=== PATIENT | female | born 1990 | race Caucasian/White ===

== ENCOUNTER 2016-06-29 23:50 | Emergency (ER) | payer OTHER ==
[2016-06-30] MEDS ORDERED: HYDROcod/ACETAM 5/325 MG TABLET PO STA (00:14)
[2016-06-30] MEDS ORDERED: AZITHROMYCIN 250 MG TABLET PO ONE (00:14)
[2016-06-30] MEDS ORDERED: AZITHROMYCIN 250 MG TABLET PO STA (00:14)
[2016-06-30] MEDS ORDERED: DEXAMETHASONE 10 MG/ML VIAL PO STA (00:14)
[2016-06-30] MEDS ORDERED: HYDROcod/ACETAM 5/325 MG TABLET ONE (00:15)
[2016-06-30] MEDS ORDERED: CHERRY SYRUP 10 ML UDC PO ONE (00:16)
[2016-06-30] MEDS ORDERED: DEXAMETHASONE 10 MG/ML VIAL ONE (00:16)
== END 2016-06-30 00:34 | disposition home or self-care (01) ==
DX: H66.003 Acute suppurative otitis media without spontaneous rupture of ear drum, bilateral (principal); J01.10 Acute frontal sinusitis, unspecified
CPT/HCPCS: 99283; A9270

== ENCOUNTER 2016-10-21 11:32 | Day surgery (SDC) | payer OTHER ==
[2016-10-21] MEDS ORDERED: LACTATED RINGERS 1,000 ML IV ONE (11:37)
[2016-10-21 11:59] LABS: HCG UR QUAL NEGATIVE
[2016-10-21] MEDS ORDERED: MIDAZOLAM 2 MG/2 ML VIAL IVP ONE (12:26)
[2016-10-21] MEDS ORDERED: fentaNYL 100 MCG/2 ML VIAL IVP ONE (12:26)
[2016-10-21 13:38] VITALS: BP 102/76
== END 2016-10-21 11:33 | disposition home or self-care (01) ==
LOC: SDS 11:32
PROVIDERS: ATTEND Internal Medicine
PROC: 0DBE8ZX Excision of Large Intestine, Via Natural or Artificial Opening Endoscopic, Diagnostic (ICD-10-PCS; principal; 2016-10-21 12:30)
DX: R19.7 Diarrhea, unspecified (principal); R14.0 Abdominal distension (gaseous); Q43.8 Other specified congenital malformations of intestine
CPT/HCPCS: 45380; 81025; J7120; 88305

== ENCOUNTER 2018-04-01 08:40 | Outpatient (CLI) | payer BC, OTHER ==
[2018-04-01 13:16] LABS: BASOPHILS % (AUTO) 0.5 %; EOSINOPHILS # (AUTO) 0.1 10^3/uL (0.0-0.7); EOSINOPHILS % (AUTO) 0.9 %; LYMPHOCYTES # (AUTO) 1.8 10^3/uL (1.5-3.5); LYMPHOCYTES % (AUTO) 23.2 %; MEAN CORPUSCULAR HEMOGLOBIN 30.6 pg (27.0-31.0); MEAN CORPUSCULAR HGB CONC 34.4 g/dL (32.0-36.0); MEAN CORPUSCULAR VOLUME 89.1 fL (81.0-99.0); MEAN PLATELET VOLUME 8.4 fL (7.9-10.8); MONOCYTES # (AUTO) 0.4 10^3/uL (0.0-1.0); MONOCYTES % (AUTO) 5.3 %; NEUTROPHILS # (AUTO) 5.5 10^3/uL (1.5-6.6); NEUTROPHILS % (AUTO) 70.1 %; PLT - PLATELET COUNT 269 10^3/uL (130-450); RED BLOOD COUNT 4.57 10^6/uL (4.20-5.40); RED CELL DISTRIBUTION WIDTH 12.9 % (12.0-15.0); WHITE BLOOD COUNT 7.9 x10^3/uL (4.8-10.8)
[2018-04-01 13:39] LABS: % IRON SATURATION 31 % (20-50); ALBUMIN 4.4 g/dL (3.2-5.5); ALBUMIN/GLOBULIN RATIO 1.9 (1.0-2.2); ALKALINE PHOSPHATASE 32 IU/L (42-121); ALT ALANINE AMINOTRANSFERASE 15 IU/L (10-60); AST ASPARTATE AMINOTRANSFERASE 28 IU/L (10-42); BILIRUBIN,TOTAL 0.9 mg/dL (0.2-1.0); BUN - BLOOD UREA NITROGEN 9 mg/dL (6-20); CARBON DIOXIDE - CO2 27 mmol/L (21-32); CHLORIDE 104 mmol/L (101-111); CREATININE 0.7 mg/dL (0.4-1.0); GFR - MDRD 100 (>89); GLUCOSE 91 mg/dL (70-100); IRON 122 ug/dL (28-170); SODIUM 137 mmol/L (135-145); TOTAL IRON BINDING CAPACITY 399 ug/dL (250-450); TOTAL PROTEIN 6.7 g/dL (6.7-8.2); TRANSFERRIN 285 mg/dL (192-382)
== END 2018-04-01 23:59 | disposition home or self-care (01) ==
LOC: LAB.WCP 08:40
PROVIDERS: ATTEND Physician Assistant
DX: R00.2 Palpitations (principal)
CPT/HCPCS: 36415; 80053; 83540; 84443; 84466; 85025

== ENCOUNTER 2018-10-04 07:39 | Outpatient (CLI) | payer BC ==
[2018-10-04 22:30] LABS: TRICHOMONAS VAGINALIS DNA NEGATIVE (NEGATIVE)
[2018-10-05 14:06] LABS: HIV AG/AB 4TH GEN NON-REACTIVE (NON-REACTIVE)
[2018-10-05 15:41] LABS: HEPATITIS C ANTIBODY NON-REACTIVE (NON-REACTIVE)
[2018-10-06 11:31] LABS: HSV 1 IGG TYPE SPECIFIC AB <0.90 index; HSV 2 IGG TYPE SPECIFIC AB <0.90 index
== END 2018-10-04 07:40 | disposition home or self-care (01) ==
LOC: LAB.WCP 07:39
PROVIDERS: ATTEND Family Medicine
DX: Z11.3 Encounter for screening for infections with a predominantly sexual mode of transmission (principal)
CPT/HCPCS: 36415; 81599; 86695; 86696; 86803; 87389; 87491; 87591; 87661